=== PATIENT | female | born 1985 | race African-American/Black ===

== ENCOUNTER 2016-10-31 09:11 | Emergency (ER) | payer MEDICAID, OTHER ==
[~2016-10-31] VITALS: Ht 167.6 cm; Wt 73.0 kg
[2016-10-31] MEDS ORDERED: MAGNESIUM/ALUMINUM HYDROXIDE/SIMETHICONE 30ML UDC PO STA (09:32)
[2016-10-31] MEDS ORDERED: VISCOUS LIDOCAINE 2% 15 ML UDC PO STA (09:32)
[2016-10-31] MEDS ORDERED: DICYCLOMINE 10 MG/5 ML ORAL SYR PO STA (09:32)
[2016-10-31] MEDS ORDERED: FAMOTIDINE 20MG TABLET PO ONE (09:45)
[2016-10-31 11:31] VITALS: BP 118/78
== END 2016-10-31 11:32 | disposition home or self-care (01) ==
LOC: ER 09:31
DX: K21.9 Gastro-esophageal reflux disease without esophagitis (principal); F12.10 Cannabis abuse, uncomplicated; F17.200 Nicotine dependence, unspecified, uncomplicated; R11.2 Nausea with vomiting, unspecified
CPT/HCPCS: 99284

== ENCOUNTER 2017-07-01 07:54 | Emergency (ER) | payer OTHER ==
[~2017-07-01] VITALS: Ht 167.6 cm; Wt 75.0 kg
[2017-07-01 08:32] VITALS: BP 102/73
[2017-07-01 08:48] LABS: CLARITY URINE CLOUDY (CLEAR); COLOR URINE DARK YELLOW (YELLOW); KETONES URINE NEGATIVE (NEGATIVE); LEUKOCYTE ESTERASE URINE 1+ (NEGATIVE); NITRITE URINE NEGATIVE (NEGATIVE); OCCULT BLOOD URINE TRACE (NEGATIVE); PROTEIN URINE NEGATIVE (NEGATIVE)
[2017-07-01] MEDS ORDERED: ALBUTEROL (0.083%) 2.5MG/3ML NEB HHN STA (11:29)
[2017-07-01] MEDS ORDERED: ACETAMINOPHEN 325MG TABLET PO ONE (11:30)
[2017-07-01] MEDS ORDERED: ONDANSETRON HCL 4MG TABLET PO ONE (11:30)
== END 2017-07-01 12:27 | disposition home or self-care (01) ==
LOC: ER 08:03
DX: K52.9 Noninfective gastroenteritis and colitis, unspecified (principal); H61.23 Impacted cerumen, bilateral; F17.200 Nicotine dependence, unspecified, uncomplicated; F12.10 Cannabis abuse, uncomplicated
CPT/HCPCS: 81001; 81025; 94640; 99283; J7611; Q0162

== ENCOUNTER 2024-12-23 07:17 | Emergency (ER) | payer BC, OTHER ==
[~2024-12-23] VITALS: Ht 167.6 cm; Wt 87.1 kg
[2024-12-23 07:26] VITALS: TEMP 37.1; O2SAT 100
[2024-12-23] MEDS ORDERED: KETO10TA2 MT (09:36)
[2024-12-23 09:52] VITALS: BP 114/82; PULSE 68; RESP 16; O2SAT 100
== END 2024-12-23 11:00 | disposition home or self-care (01) ==
LOC: ER 07:17
DX: M25.562 Pain in left knee (principal); M25.561 Pain in right knee; F12.10 Cannabis abuse, uncomplicated
CPT/HCPCS: 99283